=== PATIENT | male | born 1965 | race Caucasian/White ===

== ENCOUNTER 2017-11-20 12:13 | Emergency (ER) | payer BC ==
[2017-11-20 13:14] VITALS: BP 144/91
--- NOTE | 2017-11-20 13:32 | UC ---
Throat Pain/Nasal Durga HPI - HPI Summary HPI Summary: Pt c/o of nasal congestion, PND, generalized malaise, "full ears", ST, and occasional cough X 1 week. - History of Current Complaint Chief Complaint: UCRespiratory Stated Complaint: UPPER RESPITORY Time Seen by Provider: 11/20/17 13:10 Hx Obtained From: Patient Onset/Duration: Gradual Onset, Lasting Days, Still Present Severity: Mild Pain Intensity: 0 Cough: Productive - infrequent Associated Signs & Symptoms: Positive: Other - PND - Epiglottits Risk Factors Epiglottis Risk Factors: Negative - Allergies/Home Medications Allergies/Adverse Reactions: Allergies Allergy/AdvReac Type Severity Reaction Status Date / Time No Known Allergies Allergy Verified 11/20/17 13:15 PMH/Surg Hx/FS Hx/Imm Hx Previously Healthy: Yes - Surgical History Surgical History: Yes Surgery Procedure, Year, and Place: RT ankle LIGAMENT REPAIR surgery - Family History Known Family History: Negative: Diabetes - Social History Occupation: Employed Full-time Lives: With Family Alcohol Use: Weekly Alcohol Amount: 1-2 drinks every other day Substance Use Type: None Smoking Status (MU): Former Smoker Have You Smoked in the Last Year: No When Did the Patient Quit Smoking/Using Tobacco: 22 YRS AGO - Immunization History Most Recent Influenza Vaccination: 2013 Review of Systems Constitutional: Fatigue Skin: Negative Eyes: Negative ENT: Ear Ache, Sinus Congestion Respiratory: Cough Cardiovascular: Negative Gastrointestinal: Negative Genitourinary: Negative Motor: Negative Neurovascular: Negative Musculoskeletal: Negative Neurological: Negative Psychological: Negative Is Patient Immunocompromised?: No All Other Systems Reviewed And Are Negative: Yes Physical Exam Triage Information Reviewed: Yes Appearance: Ill-Appearing Vital Signs: Initial Vital Signs Temp 98.4 F 11/20/17 13:07 Pulse 61 11/20/17 13:07 Resp 16 11/20/17 13:07 BP 144/91 11/20/17 13:07 Pulse Ox 96 11/20/17 13:07 Vital Signs Reviewed: Yes Eye Exam: Normal ENT Exam: Other ENT: Positive: TM bulging, Other - PND Dental Exam: Normal Neck exam: Normal Respiratory Exam: Normal Cardiovascular Exam: Normal Musculoskeletal Exam: Normal Neurological Exam: Normal Psychological Exam: Normal Skin Exam: Normal Throat Pain/Nasal Course/Dx - Differential Dx/Diagnosis Differential Diagnosis/HQI/PQRI: Influenza, Sinusitis, URI Provider Diagnoses: Viral syndrome Discharge - Sign-Out/Discharge Documenting (check all that apply): Discharge/Admit/Transfer - Discharge Plan Condition: Stable Disposition: HOME Prescriptions: predniSONE TAB* [Deltasone TAB*] 30 mg PO DAILY #12 tab Patient Education Materials: Viral Syndrome (ED), Postnasal Drip (DC) Referrals: ALIYAH Mares [Primary Care Provider] - Additional Instructions: Please continue to use OTC antihistamine as directed. - Billing Disposition and Condition Condition: STABLE Disposition: HOME
== END 2017-11-20 13:42 | disposition home or self-care (01) ==
LOC: UCCORT 12:13
DX: B34.9 Viral infection, unspecified (principal); Z87.891 Personal history of nicotine dependence
CPT/HCPCS: 99212; G0463

== ENCOUNTER 2018-03-21 07:59 | Emergency (ER) | payer BC ==
[2018-03-21 08:29] VITALS: BP 149/95
[2018-03-21] MEDS ORDERED: BSS OPTH.SOL* BTL ONE (08:30)
[2018-03-21] MEDS ORDERED: Fluorescein Sod TOPICAL 0.6* 0.6 MG TEST OPHTHALMIC ONE ×2 (08:30→08:36)
[2018-03-21] MEDS ORDERED: Tetracaine 0.5% OPTH.SOL 4 ML* 1 DROP BTL ONE (08:31)
--- NOTE | 2018-03-21 08:48 | UC ---
Eye Complaint HPI - HPI Summary HPI Summary: Pt woke with left eye irritatin yesterday. + clear tears mild photophobia no vision changes no fever, chills no ortega, no sinus pain, ear pain. no fever, chills mild discomfort pt does wear contacts - has not been wearingi n left eye yesterday or today does not feel fb. pt states approx 2 weeks ago did irritate eye with contact - states sx resolved completely before current sx tdap utd Pt's medications reviewed this visit - History of Current Complaint Chief Complaint: UCEye Stated Complaint: LEFT EYE CONCERN Time Seen by Provider: 03/21/18 08:36 Hx Obtained From: Patient Pain Intensity: 0 - Allergies/Home Medications Allergies/Adverse Reactions: Allergies Allergy/AdvReac Type Severity Reaction Status Date / Time No Known Allergies Allergy Verified 11/20/17 13:15 PMH/Surg Hx/FS Hx/Imm Hx Previously Healthy: Yes - Surgical History Surgical History: Yes Surgery Procedure, Year, and Place: RT ankle LIGAMENT REPAIR surgery - Family History Known Family History: Negative: Diabetes - Social History Alcohol Use: Weekly Alcohol Amount: 1-2 drinks every other day Substance Use Type: None Smoking Status (MU): Former Smoker Have You Smoked in the Last Year: No When Did the Patient Quit Smoking/Using Tobacco: 22 YRS AGO - Immunization History Most Recent Influenza Vaccination: 2013 Review of Systems Eyes: Drainage - clear, Eye Redness, Photophobia - mild All Other Systems Reviewed And Are Negative: Yes Physical Exam - Summary Physical Exam Summary: Vital Signs Reviewed: Yes A+Ox3, no distress Eyes: Conjunctiva Clear, MIGUEL. EOM intact minimal photophobia + injected clear drainage fluorescene uptake - small lateral aspect of iris left eye no f.b lids everted ENT: Hearing grossly normal TM x 2 clear, mmoist, uvula midline, no exudate, no erythema Neck: Positive: Supple Respiratory: Positive: No respiratory distress, No accessory muscle use + CTA throughout no w/r Cardiovascular: RRR nl s1, s2 no m/r CBT <2 sec abd soft + BS nt/nd no guarding, no distension Musculoskeletal Exam: STROUD x 4 without difficulty Strength Intact, ROM Intact Neurological: Positive: Alert, + sensation throughout Psychological: Positive: Normal Response To Family Skin: Positive: no rash, no ecchymosis Triage Information Reviewed: Yes Vital Signs: Initial Vital Signs Temp 98.2 F 03/21/18 08:18 Pulse 56 03/21/18 08:18 Resp 15 03/21/18 08:18 BP 149/95 03/21/18 08:18 Pulse Ox 98 03/21/18 08:18 Eye Complaint Course/Dx - Course Course Of Treatment: pt with left eye injection and irritation x 2 days pt does wear contacts - no in. pt with small corneal abraison. cipro drops. motrin/ apap. sunglasses. no contact. ophtho referral. BBP mild elevated- recommend pcp f/u - Differential Dx/Diagnosis Provider Diagnoses: corneal abraison Discharge - Sign-Out/Discharge Documenting (check all that apply): Patient Departure All imaging exams completed and their final reports reviewed: No Studies - Discharge Plan Condition: Stable Disposition: HOME Prescriptions: Ciprofloxacin 0.3% OPTH.LEWIS* [Cipro 0.3% Opth*] 2 drop LEFT EYE Q6HR #1 btl Patient Education Materials: Corneal Abrasion (ED) Referrals: Hitesh Shah MD [Medical Doctor] - Margaret Landers MD [Medical Doctor] - Magan Baldwin PA [Primary Care Provider] - Additional Instructions: - use eye drops EXACTLY as prescribed - okay to take ibuprofen (advil, motrin) or tylenol as needed for pain - do NOT use a contact lens in the affected eye until you are evaluated in follow-up - you may find sunglasses help with sensitivity - it you have dry crust in your eye, use a warm moist cloth to cleanse - contact the eye doctor today to schedule a follow-up appointment this week. Contact the eye doctor or return with questions or concerns - Billing Disposition and Condition Condition: STABLE Disposition: Home
== END 2018-03-21 09:15 | disposition home or self-care (01) ==
LOC: UCCORT 07:59
DX: S05.02XA Injury of conjunctiva and corneal abrasion without foreign body, left eye, initial encounter (principal); S00.202A Unspecified superficial injury of left eyelid and periocular area, initial encounter; X58.XXXA Exposure to other specified factors, initial encounter; Y93.9 Activity, unspecified; Y92.9 Unspecified place or not applicable; R03.0 Elevated blood-pressure reading, without diagnosis of hypertension; Z87.891 Personal history of nicotine dependence
CPT/HCPCS: 99212; A9270-GY; G0463

== ENCOUNTER 2018-09-10 10:05 | Emergency (ER) | payer BC ==
--- NOTE | 2018-09-10 12:36 | UC ---
Throat Pain/Nasal Durga HPI - HPI Summary HPI Summary: 53 yo male presents with sinus pain/pressure/congestion for 8 days. He has been taking OTC mucinex and cold medicine with no change in his symptoms. [place] like he had a fever a few days ago, but did not take his temperature. Denies sore throat, cough, SOB, rash, n/v - History of Current Complaint Stated Complaint: SINUS,COUGH Time Seen by Provider: 09/10/18 12:36 Hx Obtained From: Patient Onset/Duration: Gradual Onset Severity: Mild Pain Intensity: 3 Pain Scale Used: 0-10 Numeric - Allergies/Home Medications Allergies/Adverse Reactions: Allergies Allergy/AdvReac Type Severity Reaction Status Date / Time No Known Allergies Allergy Verified 11/20/17 13:15 PMH/Surg Hx/FS Hx/Imm Hx Cardiovascular History: Hypertension - Surgical History Surgical History: Yes Surgery Procedure, Year, and Place: RT ankle LIGAMENT REPAIR surgery - Family History Known Family History: Negative: Diabetes - Social History Occupation: Employed Full-time Lives: With Family Alcohol Use: Weekly Alcohol Amount: 1-2 drinks every other day Substance Use Type: None Smoking Status (MU): Former Smoker Have You Smoked in the Last Year: No When Did the Patient Quit Smoking/Using Tobacco: 22 YRS AGO - Immunization History Most Recent Influenza Vaccination: 2013 Review of Systems All Other Systems Reviewed And Are Negative: Yes Constitutional: Positive: Negative Skin: Positive: Negative Eyes: Positive: Negative ENT: Positive: Nasal Discharge, Sinus Congestion, Sinus Pain/Tenderness Respiratory: Positive: Negative Cardiovascular: Positive: Negative Gastrointestinal: Positive: Negative Neurovascular: Positive: Negative Neurological: Positive: Negative Psychological: Positive: Negative Physical Exam - Summary Physical Exam Summary: GENERAL: NAD. WDWN. No pain distress. SKIN: No rashes, sores, lesions, or open wounds. HEENT: Head: AT/NC Eyes: EOM intact. Conjunctiva clear without inflammation or discharge. Ears: Hearing grossly normal. TMs intact, no bulging, erythema, or edema. Nose: Nasal mucosa mildly swollen and erythematous with yellow/ clear discharge. TTP maxillary and frontal sinus. Positive post nasal drip Throat: Posterior oropharynx without exudates, erythema, or tonsillar enlargement. Uvula midline. NECK: Supple. Nontender. No lymphadenopathy. CHEST: CTAB. No r/r/w. No accessory muscle use. Breathing comfortably and in no distress. CV: RRR. Without m/r/g. Pulses intact. NEURO: Alert. PSYCH: Age appropriate behavior. Triage Information Reviewed: Yes Vital Signs: Vital Signs: Temp Pulse Resp BP Pulse Ox 98.4 F 65 19 168/102 96 09/10/18 12:44 09/10/18 12:44 09/10/18 12:44 09/10/18 12:44 09/10/18 12:44 Vital Signs Reviewed: Yes Throat Pain/Nasal Course/Dx - Course Course Of Treatment: Sinusitis - Differential Dx/Diagnosis Provider Diagnosis: Sinusitis Discharge - Sign-Out/Discharge Documenting (check all that apply): Patient Departure All imaging exams completed and their final reports reviewed: No Studies - Discharge Plan Condition: Stable Disposition: HOME Patient Education Materials: Sinusitis (ED) Referrals: Magan Baldwin PA [Primary Care Provider] - Additional Instructions: If you develop a fever, shortness of breath, chest pain, new or worsening symptoms - please call your PCP or go to the ED. Your blood pressure was high at todays visit. Please see your primary provider within 4 weeks for recheck and re-evaluation. - Billing Disposition and Condition Condition: STABLE Disposition: Home
[2018-09-10 12:47] VITALS: BP 168/102
== END 2018-09-10 12:49 | disposition home or self-care (01) ==
LOC: UCCORT 10:05
DX: J32.9 Chronic sinusitis, unspecified (principal); I10 Essential (primary) hypertension; Z87.891 Personal history of nicotine dependence
CPT/HCPCS: 99212; G0463

== ENCOUNTER 2021-11-18 09:03 | Inpatient (IN) ==
[2021-11-18] MEDS ORDERED: Al Hydrox/Mg Hydrox/Simet LIQ 30 ML UDC PO ONE (09:29)
[2021-11-18] MEDS ORDERED: Lactated Ringers 1000 ml BAG 1,000 ML IV ONE ×2 (09:31→12:05)
[2021-11-18] MEDS ORDERED: Ondansetron 4 mg VIAL 2 MG/ML 2 ml VIAL IV ONE (10:11)
[2021-11-18 10:19] LABS: ABS Basophils 0.1 10^3/ul (0-0.2); ABS Lymphocytes 1.6 10^3/ul (1.0-4.8); ABS Monocytes 0.8 10^3/ul (0-0.8); Eosinophil % 0.2 %; Hematocrit 41 % (42-52); Hemoglobin 14.5 g/dL (14.0-18.0); Lymphocyte % 11.7 %; Mean Corpuscular HGB Conc 36 g/dL (31-36); Mean Corpuscular Hemoglobin 32 pg (27-31); Mean Corpuscular Volume 89 fL (80-94); Mean Platelet Volume 7.8 fL (7.4-10.4); Nucleated Red Blood Cells % 0.2; Platelet Count 261 10^3/uL (150-450); Red Blood Count 4.58 10^6 /uL (4.18-5.48); Red Cell Distribution Width 13 % (10-15); White Blood Count 13.4 10^3/uL (3.5-10.8)
[2021-11-18 10:54] LABS: Albumin 4.3 g/dL (3.2-5.2); C Reactive Protein 121.42 mg/L (<8.01); Calcium 9.9 mg/dL (8.6-10.3); Globulin 2.2 g/dL (2-4); Potassium 3.8 mmol/L (3.5-5.0); Total Bilirubin 1.2 mg/dL (0.2-1.0); Total Protein 6.5 g/dL (6.4-8.9); eGFR CKD-EPI 71.2 (>60)
[2021-11-18] MEDS ORDERED: Iohexol 300 (CONTRAST) 10 ML SDV IV ONE (11:02)
[2021-11-18 12:11] LABS: High Sensitivity Troponin 1 Hr 4 pg/mL (<20)
[2021-11-18] MEDS: HYDROmorphone 1 MG/1 ML SYRINGE IV PRN ×2 (14:47→19:39)
[2021-11-18] MEDS: Lactated Ringers 1000 ml BAG 1,000 ML IV SCH ×2 (14:47→19:54)
[2021-11-18] MEDS: Enoxaparin 40 MG/0.4 ML SYR SUBCUT SCH (14:47)
[2021-11-18 14:48] LABS: HDL Cholesterol 42.7 mg/dL
[2021-11-18] MEDS: Metoclopramide 5 MG/ML VIAL (10 mg) IV PRN (19:19)
[2021-11-19] MEDS: HYDROmorphone 1 MG/1 ML SYRINGE IV PRN (01:43)
[2021-11-19] MEDS: Metoclopramide 5 MG/ML VIAL (10 mg) IV PRN ×3 (01:43→14:16)
[2021-11-19 07:09] LABS: Hematocrit 36 % (42-52); Mean Corpuscular HGB Conc 36 g/dL (31-36); Mean Corpuscular Hemoglobin 32 pg (27-31); Mean Corpuscular Volume 90 fL (80-94); Mean Platelet Volume 8.5 fL (7.4-10.4); Platelet Count 219 10^3/uL (150-450); Red Blood Count 4.02 10^6 /uL (4.18-5.48); Red Cell Distribution Width 13 % (10-15); White Blood Count 12.9 10^3/uL (3.5-10.8)
[2021-11-19 07:16] LABS: Calcium 8.9 mg/dL (8.6-10.3); Magnesium 1.8 mg/dL (1.9-2.7); eGFR CKD-EPI 72.6 (>60)
[2021-11-19] MEDS: oxyCODONE/Acetamin 5/325 mg TAB PO PRN ×3 (09:04→22:54)
[2021-11-19] MEDS: Enoxaparin 40 MG/0.4 ML SYR SUBCUT SCH (17:06)
[2021-11-19] MEDS: Lactated Ringers 1000 ml BAG 1,000 ML IV SCH (17:43)
[2021-11-20] MEDS: Lactated Ringers 1000 ml BAG 1,000 ML IV SCH ×2 (03:06→23:17)
[2021-11-20] MEDS ORDERED: Ondansetron 4 mg VIAL 2 MG/ML 2 ml VIAL IV PRN (03:25)
[2021-11-20] MEDS ORDERED: Ondansetron 4 mg VIAL 2 MG/ML 2 ml VIAL ONE (03:39)
[2021-11-20] MEDS: HYDROmorphone 1 MG/1 ML SYRINGE IV PRN (03:44)
[2021-11-20 06:47] LABS: Hematocrit 36 % (42-52); Hemoglobin 12.6 g/dL (14.0-18.0); Mean Corpuscular HGB Conc 35 g/dL (31-36); Mean Corpuscular Hemoglobin 32 pg (27-31); Mean Corpuscular Volume 91 fL (80-94); Mean Platelet Volume 7.7 fL (7.4-10.4); Platelet Count 221 10^3/uL (150-450); Red Blood Count 3.91 10^6 /uL (4.18-5.48); Red Cell Distribution Width 13 % (10-15); White Blood Count 10.3 10^3/uL (3.5-10.8)
[2021-11-20 07:39] LABS: Potassium 4.8 mmol/L (3.5-5.0); eGFR CKD-EPI 69.8 (>60)
[2021-11-20] MEDS: oxyCODONE/Acetamin 5/325 mg TAB PO PRN ×3 (11:11→22:25)
[2021-11-20] MEDS ORDERED: Metoclopramide 5 MG/ML VIAL (10 mg) IV PRN (13:35)
[2021-11-20] MEDS: Enoxaparin 40 MG/0.4 ML SYR SUBCUT SCH (15:35)
[2021-11-21] MEDS: Lactated Ringers 1000 ml BAG 1,000 ML IV SCH (04:28)
[2021-11-21 07:56] LABS: Calcium 8.9 mg/dL (8.6-10.3); Potassium 4.6 mmol/L (3.5-5.0); eGFR CKD-EPI 67.1 (>60)
[2021-11-21] MEDS: oxyCODONE/Acetamin 5/325 mg TAB PO PRN (08:10)
[2021-11-21 11:18] VITALS: BP 152/85
[2021-11-21 13:12] LABS: Carcinoembryonic Antigen 0.5 ng/mL (0.1-5.0)
[2021-11-22 17:30] LABS: Immunoglobulin G3 27.2 mg/dL; Immunoglobulin G4 5.3 mg/dL
== END 2021-11-21 13:22 | disposition home or self-care (01) | DRG 282 ==
LOC: ED 09:03 → EDHOLD 14:21 → MED 20:06
PROVIDERS: ADMIT Internal Medicine; ATTEND Internal Medicine